=== PATIENT | male | born 1945 | race Caucasian/White ===

== ENCOUNTER 2020-11-08 17:10 | Emergency (ER) | payer MEDICARE, OTHER ==
[~2020-11-08 17:10] MED LIST: ALLOPURINOL100 MG PO; AMARYL2 MG PO; ASPIRIN EC81 MG PO; AZITHROMYCIN250 MG PO; BUMETANIDE1 MG PO; BUMEX1 MG PO; COREG25 MG PO; DULERA 200 MCG8.8 GM INH; ENTRESTO 24 MG1 EACH PO; GLUCOTROL10 MG PO; LASIX80 MG PO; METFORMIN HCL500 MG PO; NORCO 5-325 TA1 EACH PO; PRAVACHOL20 MG PO; PREDNISONE 20MG20 MG PO; PRESERVISION A1 EACH PO; REQUIP1 MG PO; TAMIFLU 75MG CA75 MG PO; VIBRAMYCIN100 MG PO; VITAMIN D350000 UNIT PO; XARELTO10 MG PO; XARELTO20 MG PO
[2020-11-08 18:23] LABS: BASOPHIL 0.1 % (0-2); EOSINOPHIL 0.5 % (0-7); HCT 41.8 % (42.0-52.0); HGB 13.6 g/dl (13.2-18.0); LYMPHOCYTE 6.9 % (15-48); MCH 29.9 pg (25.0-31.0); MCHC 32.5 g/dL (32.0-36.0); MCV 91.9 fL (78.0-100.0); MONOCYTE 7.5 % (0-12); MPV 10.5 fL (6.0-9.5); NEUTROPHIL 84.7 % (41-80); NRBC 0; PLT 161 K/uL (150-400); RBC 4.55 M/uL (4.70-6.00); RDW 14.8 % (11.5-14.0); WBC 9.5 K/uL (4.0-10.5)
[2020-11-08 18:25] LABS: BILIRUBIN NEGATIVE (NEGATIVE); BLOOD 2+ Ery/uL (NEGATIVE); CLARITY CLEAR (CLEAR); COLOR YELLOW (YELLOW); GLUCOSE (U) NORMAL (NORMAL); LEUKOCYTES NEGATIVE Leu/uL (NEGATIVE); NITRITE NEGATIVE (NEGATIVE); PROTEIN 3+ mg/dL (NEGATIVE); SPECIFIC GRAVITY 1.025 (1.001-1.030); UROBILINOGEN 0.2 mg/dL (0.2-1.0); pH 7.5 (5.0-9.0)
[2020-11-08 18:29] LABS: SQUAMOUS EPITHELIAL CELLS RARE
[2020-11-08 18:39] LABS: ALBUMIN 3.8 g/dL (3.4-5.0); BILIRUBIN - TOTAL 0.9 mg/dL (0.2-1.0); BUN/CREAT RATIO (CALC) 17.5 RATIO; CREATININE 1.14 mg/dL (0.67-1.17); GLOBULIN (CALCULATION) 4.1 g/dL; POTASSIUM 4.6 mmol/L (3.5-5.1); TOTAL PROTEIN 7.9 g/dL (6.4-8.2)
[2020-11-08 18:43] LABS: LACTIC ACID 0.8 mmol/L (0.4-1.9)
[2020-11-08 18:58] LABS: CORONAVIRUS 2019 SARS-COV-2 NEGATIVE (NEGATIVE); INFLUENZA A NAA NEGATIVE (NEGATIVE)
[2020-11-08 20:40] LABS: INR 2.13 (0.9-1.2); PROTHROMBIN TIME 22.7 SECONDS (11.4-13.6)
[2020-11-08] MEDS ORDERED: PREDNISONE 20MG20 MG PO (20:44)
== END 2020-11-08 21:00 | disposition home or self-care (01) ==
LOC: FER 17:10
PROVIDERS: Emergency Medicine
DX: I11.0 Hypertensive heart disease with heart failure (principal); I50.9 Heart failure, unspecified; J44.1 Chronic obstructive pulmonary disease with (acute) exacerbation; E87.0 Hyperosmolality and hypernatremia; Z20.822 Contact with and (suspected) exposure to COVID-19; E11.9 Type 2 diabetes mellitus without complications; I48.91 Unspecified atrial fibrillation; Z79.84 Long term (current) use of oral hypoglycemic drugs
CPT/HCPCS: 36415; 36600; 71045; 80053; 81001; 82803; 83605; 83880; 84145; 84484; 85025; 85379; 85610; 87040; 93005; 94640; 94664; 94762; J2930; U0002